=== PATIENT | female | born 1960 ===

== ENCOUNTER 2025-06-29 08:00 | Day surgery (SDC) | payer OTHER ==
[2025-06-29] MEDS ORDERED: fentaNYL CITRATE 50 MCG/ML AMPUL IV PUSH ONE (11:45)
[2025-06-29] MEDS ORDERED: DIPHENHYDRAMINE HCL 50 MG/ML VIAL 1ML IV ONE (11:45)
[2025-06-29] MEDS ORDERED: MIDAZOLAM HCL 2 MG/2 ML VIAL IV ONE (11:45)
== END 2025-06-29 12:40 | disposition home or self-care (01) ==
LOC: AMB-ENDOS 08:00
PROVIDERS: ATTEND Internal Medicine
DX: D12.3 Benign neoplasm of transverse colon (principal); K63.5 Polyp of colon; K57.30 Diverticulosis of large intestine without perforation or abscess without bleeding